=== PATIENT | male | born 1950 | race Caucasian/White ===

== ENCOUNTER 2019-02-28 19:13 | Emergency (ER) | payer MEDICARE, OTHER ==
[~2019-02-28] VITALS: Ht 177.8 cm; Wt 65.8 kg
[2019-02-28] MEDS ORDERED: TRAM50TA2 PO (19:29)
[2019-02-28] MEDS ORDERED: METOCLOPRAMIDE HCL 10 MG/2 ML VIAL IV ONE (19:30)
[2019-02-28] MEDS ORDERED: IV NORMAL SALINE 1000 ML BAG IV ONE ×2 (19:30→20:45)
[2019-02-28] MEDS ORDERED: KETOROLAC TROMETHAMINE 15 MG INJ IVP ONE (19:30)
[2019-02-28] MEDS ORDERED: DIATR MEGLU/DIATRIZOATE SODIUM 30 ML SOLUTION ONE (19:32)
--- NOTE | 2019-02-28 19:35 | NUR ---
DR. CAMPBELL AT BEDSIDE FOR MSE AND SUTURE OF LEFT FOOT.
[2019-02-28] MEDS ORDERED: KETOROLAC TROMETHAMINE 15 MG INJ ONE (19:51)
[2019-02-28] MEDS ORDERED: METOCLOPRAMIDE HCL 10 MG/2 ML VIAL ONE (19:51)
[2019-02-28 20:08] LABS: BASOPHILS % (AUTO) 0.5 % (0.0-2.0); EOSINOPHILS % (AUTO) 0.2 % (0.0-7.0); HEMATOCRIT 35.3 % (36.7-47.1); HEMOGLOBIN 11.7 g/dL (12.5-16.3); LYMPHOCYTES # (AUTO) 1.1 K/uL (20.0-40.0); LYMPHOCYTES % (AUTO) 12.3 % (20.5-51.5); MEAN CORPUSCULAR HEMOGLOBIN 28.9 uug (23.8-33.4); MEAN CORPUSCULAR HGB CONC 33 g/dL (32.5-36.3); MEAN CORPUSCULAR VOLUME 86.8 fL (73.0-96.2); MONOCYTES # (AUTO) 0.8 K/uL (2.0-10.0); MONOCYTES % (AUTO) 9.1 % (0.0-11.0); NEUTROPHILS # (AUTO) 7.2 K/uL (1.8-8.9); NEUTROPHILS % (AUTO) 77.9 % (38.5-71.5); PLATELET COUNT (AUTO) 206 K/uL (152-348); RED BLOOD CELL COUNT(AUTO) 4.07 MIL/uL (4.06-5.63); WHITE BLOOD COUNT (AUTO) 9.3 K/uL (3.6-10.2)
[2019-02-28 20:24] LABS: CREATININE 1.6 mg/dL (0.6-1.3); POTASSIUM 3.4 mmol/L (3.5-5.1)
[2019-02-28] MEDS ORDERED: SWABABLE VALVE TRANSFER SET EA MC ONE (20:24)
[2019-02-28] MEDS ORDERED: IV NORMAL SALINE 250 ML IV ONE (20:25)
[2019-02-28] MEDS ORDERED: IOHEXOL 300MG/ML 100 ML INFUS..BTL ONE (20:25)
[2019-02-28 20:28] LABS: BILIRUBIN,DIRECT 0.6 mg/dL (0.0-0.2); BILIRUBIN,TOTAL 2.9 mg/dL (0.2-1.0)
--- NOTE | 2019-02-28 22:00 | NUR ---
PT ON SUPINE, TALKING AND MUMBLING REPEATEDLY TO HIMSELF, WHILE HOLDING CROTCH. PT STILL UNABLE TO PROVIDE URINE SAMPLE.
--- NOTE | 2019-02-28 22:15 | NUR ---
PT ABLE TO PROVIDE URINE SAMPLE TO URINAL PT PROVIDED PRIVACY SR. MANAGER [employer]PORATE COMMUNICATIONS AT BEDSIDE
[2019-02-28 22:44] LABS: *BLOOD, URINE 2+ (NEGATIVE); *CLARITY,URINE CLEAR (CLEAR); *COLOR,URINE YELLOW (YELLOW); *KETONES,URINE 2+ (NEGATIVE); *UROBILINOGEN,URINE 0.2 E.U./dl (NORMAL); LEUKOCYTE ESTERASE ,URINE NEGATIVE (NEGATIVE); NITRITE, URINE NEGATIVE (NEGATIVE); UGLUCOSE NEGATIVE (NEGATIVE)
[2019-02-28 22:51] LABS: CREATININE 1.3 mg/dL (0.6-1.3); POTASSIUM 3.8 mmol/L (3.5-5.1)
[2019-02-28 22:59] LABS: *BILIRUBIN,URIN 1+ (NEGATIVE)
[2019-02-28 23:05] LABS: BACTERIA,URINE NONE SEEN /HPF (NONE SEEN); SQUAMOUS EPITHELIAL CELL,UR FEW /HPF (NONE SEEN); WBC,URINE 0-3 /HPF (0-3)
--- NOTE | 2019-02-28 23:40 | NUR ---
PT ACCOMPANIED BY TECH DOWN FOR CT VIA GURMICHEL CARTERAILSX2 UP, BED AT LOWEST POSITION PT NAD AWAKE AND COMPLIANT W/ INTACT SALINE LOCK AT LEFT AC G20
--- NOTE | 2019-02-28 23:52 | NUR ---
BACK FROM CT ACCOMPANIED BY TECH VIA [place] CARTERAILSX2 UP, BED AT LOWEST POSITION MONITORED ACCORDINGLY
--- NOTE | 2019-03-01 02:33 | NUR ---
PT ON LEFT LATERAL RECUMBENT PT STATES: "WHY ARE YOU GUYS WATCHING ME? WHY ARE THERE CAMERAS AND BRIGHT LIGHTS?" PT REORIENTED AND REASSURED THAT THE LIGHTS ARE OFF AND THERE ARE NO CAMERAS WATCHING HIM. PT KEPT SAFE, WARM AND COMFORTABLE PT NAD MONITORED ACCORDINGLY
--- NOTE | 2019-03-01 02:58 | NUR ---
PT REMOVED HIS MONITOR STATES: "IT BOTHERED ME SO I TOOK IT OFF. THERE'S TOO MUCH LIGHT." PT REORIENTED, REASSURED. PT ROOM LIGHTS TURNED OFF PER REQUEST
--- NOTE | 2019-03-01 05:54 | NUR ---
PT REMAINED UNDER ER OBSERVATION UNTIL DAYLIGHT AND UNTIL TELEVISION PRESENTER THIS MORNING CAN EVAL FOR PLACEMENT. PT NAD. ASLEEP SIDERAILSX2 UP, BED AT LOWEST POSITION MONITORED ACCORDINGLY
--- NOTE | 2019-03-01 07:10 | NUR ---
RECIEVED PT IN BED RESTING, AROUSABLE.
--- NOTE | 2019-03-01 08:04 | NUR ---
BREAKFAST PROVIDED FOR PT. PT EATING WITH GOOD APETITE.
--- NOTE | 2019-03-01 09:00 | NUR ---
tamra, social service worker at bedside.
--- NOTE | 2019-03-01 10:00 | NUR ---
pt ambulated to [facility] with steady gait.
--- NOTE | 2019-03-01 10:30 | NUR ---
Patient discharged to home in stable conditon. Written and verbal after care instructions given. Patient verbalizes understanding of instructions.pt walks in steady gait. pt axox4. pt deneisa ny pain,nausea, dizziness or any other complain. non-perishable juice and snacks provided along with clean clothing . pt appreciative of the service recieved here.
--- NOTE | 2019-03-01 10:48 | NUR ---
9:00am: SW consultation requested for homelessness. SW arrived to ED and met with UZMA Li to discuss case. SW then met with patient, who was in his assigned ED room, and receptive to meeting with this SW. Patient is a 68 year old white male, homeless, oriented x 4. Patient came into the ED last night due to abdominal pain (see MD notes for details). Patient states that he is homeless and lives on the streets in different places throughout the [facility] [place]. Patient presented with fair grooming/semi-worn out clothes, and was provided with a clean pair of pants and 2 shirts. Patient was provided with a meal during his time in the ED. SW discussed discharge plans with the patient, and patient declined shelters and stated that he wants to return to his previous living arrangement. SW discussed transportation resources, and patient stated he has an all access metro pass. Patient is also observed to ambulate with steady gait. Patient stated his vision is fair due to macular degeneration, however patient was able to maintain eye contact, and was able to correctly describe what this SW was wearing, including the color of SW's clothing, color of SW's hair, and the fact that the SW was wearing a mask. Patient was also observed walking from his ED room to the bathroom with steady gait and no assistance. Community resources were discussed with the patient, and patient expressed agreement with receiving information on the resources. SW provided the homeless resource packet to the patient, which included the list of year-round homeless shelters, the [facility]eless Resource Directory which has a list of places homeless individuals can go throughout the week for hot meals, sack lunches, showers, and food pantries, a list of medical and mental health clinics, a list of substance abuse treatment programs, and a list of pharmacies. Patient signed the homeless patient waiver form, and SW filed it in patient's ED chart. No additional resources were needed at this time. UZMA Li informed of above.
[2019-03-01 11:01] VITALS: BP 119/79
== END 2019-03-01 11:02 | disposition home or self-care (01) ==
LOC: ER 19:16
DX: R10.9 Unspecified abdominal pain (principal); N28.9 Disorder of kidney and ureter, unspecified; H54.7 Unspecified visual loss; Z59.0 Homelessness; Z79.899 Other long term (current) drug therapy
CPT/HCPCS: 36415; 71045; 74177; 76705; 80048 ×2; 80076; 81000; 81001; 83690; 84484; 85025; 85730; 93005; 96374; 96375; 99284; J1885; J2765; Q9967; 70030-TC; A4663; J7030; J7050; Q9963